=== PATIENT | female | born 1970 | race Caucasian/White ===

== ENCOUNTER 2022-11-07 20:12 | Emergency (ER) | payer MEDICAID, SELFPAY ==
[2022-11-07 20:14] VITALS: BMI 27.0
[2022-11-07 20:16] VITALS: BP 157/100; PULSE 89; RESP 16; TEMP 36.8; O2SAT 97
--- NOTE | 2022-11-07 20:21 | ECG_ITS ---
[facility] Test Date: 2022-11-07 Pat Name: Amber Pruitt Department: Room: Gender: Female Skilled Trades Teacher: : 1970 Requested By: Destini White Order Number: [id number] Chrissy MD: Pradip Edgar M.D. Measurements Intervals [place] Rate: 79 P: 69 [place]: 150 QRS: 66 QRSD: 92 T: 64 QT: 378 QTc: 434 Interpretive Statements SINUS RHYTHM No previous ECG available for comparison Electronically Signed On 11-08-2022 8:11:37 CDT by Pradip Edgar M.D. [email or web address] Medical Transportationhenry county hospital.[employer] [place]/store/Ov/[id number]
--- NOTE | 2022-11-07 20:21 | XRR_ITS ---
PROCEDURE INFORMATION: Exam: XR Chest Exam date and time: 11/07/2022 8:34 PM Age: 52 years old Clinical indication: Chest wall pain; Additional info: Chest pain TECHNIQUE: Imaging protocol: Radiologic exam of the chest. Views: 1 view. COMPARISON: No relevant prior studies available. FINDINGS: Tubes, catheters and devices: EKG monitoring leads overlie the thoracic wall. Lungs: There is no consolidation. Pleural spaces: No pleural effusion or pneumothorax. Heart/Mediastinum: The heart and mediastinum are normal in size. Bones/joints: Unremarkable. XR/XR chest 1V portable [id number] IMPRESSION: No acute findings.
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
[2022-11-07 21:06] VITALS: BP 156/107; PULSE 78; RESP 13; O2SAT 97
[2022-11-07 21:06] LABS: Basophils # 0.1 10^3/uL (0.0-0.1); Basophils % 0.8 %; Eosinophils # 0.2 10^3/uL (0.0-0.8); Eosinophils % 3.4 %; Hemoglobin 12.4 g/dL (11.5-15.3); Lymphocytes # 1.8 10^3/uL (0.8-4.8); Lymphocytes % 30.7 %; Mean Corpuscular HGB Conc 32.6 g/dL (30.0-36.0); Mean Platelet Volume 8.8 fL (7.4-10.4); Monocytes # 0.6 10^3/uL (0.2-0.9); Monocytes % 9.7 %; Neutrophils # 3.26 10^3/uL (1.8-7.7); Neutrophils % 55.2 %; Nucleated Red Blood Cells % 0 %; Platelet Count 247 10^3/cmm (130-400); Red Blood Count 4.13 10^6/uL (4.1-5.3); Red Cell Distribution Width 12.4 % (12.1-15.1); White Blood Count 5.9 10^3/uL (4.0-10.0)
[2022-11-07 21:19] LABS: Troponin(5th) Baseline 10 ng/L (0-10)
[2022-11-07 21:22] LABS: Alanine Aminotransferase 12 U/L (0-33); Albumin Level 4.2 g/dL (3.5-5.2); Alkaline Phosphatase 89 U/L (35-105); Anion Gap 13.7 (5-19); Aspartate Amino Transferase 18 U/L (0-32); Blood Urea Nitrogen 20 mg/dL (6-20); Calcium 8.7 mg/dL (8.5-10.5); Carbon Dioxide 24 mmol/L (22-29); Chloride 103 mmol/L (98-107); Globulin 2.3 g/dL (1.3-4.6); Glomerular Filtration Rate 43.4 mL/min (90-130); Glucose 121 mg/dL (65-115); Lipase 208 U/L (13-60); Osmolality Calculated 288 mOsm/kg (285-295); Potassium 3.7 mmol/L (3.5-5.1); Sodium 137 mmol/L (136-145); Total Bilirubin 0.2 mg/dL (0.15-1.2); Total Protein 6.5 g/dL (6.6-8.7)
[2022-11-07 21:55] VITALS: BP 139/99; PULSE 73; RESP 20; O2SAT 98
[2022-11-07 22:11] VITALS: BP 140/95; PULSE 70; RESP 17; O2SAT 96
[2022-11-07 23:05] LABS: Add Urine Microscopic? YES; Bilirubin Urine Neg (Negative); Blood Urine Neg (Negative); Glucose Urine UA Norm (Normal); Ketones Urine Negative (Negative); Leukocyte Esterase Urine Trace (Negative); Nitrate Urine Negative (Negative); Protein Urine Neg (Negative); Specific Gravity, Urine 1.015 (1.005-1.030); Urine Appearance Hazy (CLEAR); Urine Color Yellow (Yellow); Urobilinogen Urine Norm (Negative); pH Urine 7 (5-7)
[2022-11-07 23:10] LABS: RBC Urine 0-4 /hpf (0-2); WBC Urine 0-4 /hpf (0-5)
[2022-11-07 23:11] LABS: Amorphous Sediment Urine 1+ /hpf; Bacteria Urine 2+ /hpf; Squamous Epithelial Cell Urine 0-4 /hpf (0-5)
--- NOTE | 2022-11-07 23:11 | ECG_ITS ---
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 Measurements Intervals [place] Rate: 56 P: 78 [place]: 164 QRS: 74 QRSD: 92 T: 75 QT: 422 QTc: 410 Interpretive Statements SINUS BRADYCARDIA WITH SINUS ARRHYTHMIA No previous ECG available for comparison Electronically Signed On 11-08-2022 8:16:19 CDT by Pradip Edgar M.D. [email or web address] medical centerCommerce [email or web address] [facility]/store/OM/[id number]
[2022-11-07 23:49] LABS: Troponin 5 2HR Delta -4 ABS# (0-10)
[2022-11-08 00:07] VITALS: BP 142/93; PULSE 61; RESP 12; O2SAT 100
== END 2022-11-08 00:15 | disposition home or self-care (01) ==
PROVIDERS: Emergency Provider Emergency Medicine
DX: R07.89 Other chest pain (principal); G50.0 Trigeminal neuralgia; I10 Essential (primary) hypertension; Z79.899 Other long term (current) drug therapy
CPT/HCPCS: 36415; 71045; 80053; 81001; 83690; 84484; 85025; 93005; 99285

== ENCOUNTER 2022-11-12 19:44 | Emergency (ER) | payer BC, MEDICAID, SELFPAY ==
[2022-11-12 19:59] VITALS: BP 125/69; PULSE 74; RESP 16; TEMP 36.6; O2SAT 96; BMI 26.9
--- NOTE | 2022-11-12 20:15 | XRR_ITS ---
PROCEDURE INFORMATION: Exam: XR Right Wrist Exam date and time: 11/12/2022 8:39 PM Age: 52 years old Clinical indication: Injury or trauma; Fall; Blunt trauma (contusions or hematomas); Wrist; Right; Additional info: Fall, injury, pa in TECHNIQUE: Imaging protocol: Radiologic exam of the right wrist. Views: 3 or more views. COMPARISON: No relevant prior studies available. FINDINGS: Bones/joints: Normal. Soft tissues: Normal. XR/XR wrist RT min 3V* [id number] IMPRESSION: No acute findings.
--- NOTE | 2022-11-12 20:34 | W.ED.EXTPRO ---
HPI - Extremity Problem General: Chief complaint: Extremity Injury, Upper Stated complaint: right wrist injury Time Seen by Provider: 11/12/22 20:07 Source: patient Mode of arrival: ambulatory Limitations: no limitations History of Present Illness: Patient presents emergency department today for evaluation treatment of right wrist pain. Patient states she was taking something heavy out of the oven when her wrist spasmed and dropped. She heard a pop and since then, has developed right wrist swelling and bruising. Patient states for the most part, though her wrist is tender, her most painful position is palm down and pressing on the heel of her hand. Patient does have a history of rupturing connective tissue in her left wrist while batting. Review of Systems General: Reports: 10 or more systems reviewed and unremarkable except in HPI and below Physical Exam Const: COMMON NORMALS: no acute distress, patient oriented x3 and alert HENMT: COMMON NORMALS: normocephalic, atraumatic and hearing grossly normal bilaterally HEAD & SCALP: normocephalic and atraumatic Eye: COMMON NORMALS: Equal, round and reactive pupils present, EOMs intact bilaterally and conjunctivae normal CONJUNCTIVA: Yes conjunctivae normal PUPIL: Yes Equal, round and reactive pupils present Neck/C-Spine: COMMON NORMALS: full ROM and no JVD Lymph: LYMPHATIC: no lymphadenopathy noted Resp: COMMON NORMALS: normal respiratory effort, No retractions and No use of accessory muscles Cardio: COMMON NORMALS: no JVD and regular rate RATE: regular rate Extremity: NARRATIVE EXTREMITY EXAM: Patient does demonstrate some flexion extension of the wrist though she indicates discomfort. Patient also able to flex and extend the thumb at all joints but with some discomfort noted. Patient has a positive Rula test. Patient has a large area of swelling and bruising noted primarily on the distal forearm on the lateral side. This goes from the distal forearm towards the wrist joint. This area is tender to palpation. Neuro: COMMON NORMALS: patient oriented x3 SENSORIUM/ORIENTATION: Yes alert Psych: COMMON NORMALS: mental status grossly normal, Normal thought process present, cooperative and normal affect THOUGHT PROCESS: Normal thought process present Skin: COMMON NORMALS: no rashes or lesions noted and turgor normal GENERAL SKIN EXAM: no rashes or lesions noted and turgor normal Course Vital Signs: Vital signs: Vital Signs Temperature 97.9 F 11/12/22 19:59 Pulse Rate 75 11/12/22 22:21 Respiratory Rate 16 11/12/22 19:59 Blood Pressure 121/62 11/12/22 22:21 Pulse Oximetry 98 11/12/22 22:21 Oxygen Delivery Me thod Room Air 11/12/22 19:59 MDM - Extremity (Nontraumatic) Medical Decision Making X-ray is read negative for any signs of acute bony abnormality. I did get a second opinion on the x-ray from Dr. Ortega. Given the patient's physical examination findings and mechanism of injury, he still recommended bracing the patient having her follow-up with orthopedics-especially given her previous history of connective tissue rupture. Patient was put into a thumb spica. She was given 100 mg ibuprofen to take for pain. Referral to orthopedics initiated on her behalf. We discussed return precautions. Patient verbalized understanding and agreement to the treatment plan. Differential Diagnosis Likely gout; Unlikely cellulitis (Wrist fracture, tendinitis, tendon rupture, muscle strain, muscle tear) Lab Data Radiology Impressions Wrist X-Ray 11/12/22 20:15 IMPRESSION: No acute findings. Discharge Plan Discharge Patient Disposition: Home Clinical Impression: Right wrist effusion, Right wrist pain Condition: Stable Prescriptions: New ibuprofen 800 mg tablet 800 mg PO Q8H PRN (Reason: pain) Qty: 21 0RF No Action cetirizine 5 mg tablet 5 mg PO DAILY PRN fluticasone propionate [Flonase Allergy Relief] 50 mcg/actuation spray,suspension 2 spray intranasal DAILY Rx Instructions: administer into each nostril lisinopril 20 mg tablet 20 mg PO DAILY Qty: 30 0RF gabapentin 300 mg capsule 300 mg PO TID Qty: 90 0RF multivitamin Tablet 1 tab PO QAM Qty: 30 0RF Discharge Orders: Discharge ED (Routine); Ordered 11/12/22 Ordered By: Keira Rosales Discharge Diet: Usual diet Discharge Activity: Limit activity as instructed Patient Instructions: Wrist Injury (ED) Activity Restrictions/Additional Instructions: The radiologist read your x-ray is negative for signs of acute fracture however, given the physical examination findings, your history, and your mechanism of injury, we do have concerns for injury still related to your wrist. After speaking to the emergency room physician, he recommends that we still placed you into a wrist and thumb brace with follow-up through orthopedics for further evaluation of potential soft tissue injury including any rips or tears in either the musculature, tendons, or ligaments in this area. I recommend wearing your brace at all times-other than in the bath. I provided you some 800 mg ibuprofen tablets. You can still use Tylenol in addition to this ibuprofen if needed. Our case management workers who arranged follow-up appointments are in the office from Tuesday through Tuesday. You should expect to be notified at the beginning of the week regarding your follow-up appointment. If for any reason you have any acute worsening in condition we do recommend being seen and reevaluated. Coding Level of Care Code ED Instructional Services Specialist for Raphael Moreno
[2022-11-12] MEDS: ibuprofen 800 mg tablet PO (21:16)
[2022-11-12] MEDS: HYDROcodone-acetaminophen 5-325 mg Tablet 1 TAB PO (21:16)
[2022-11-12 22:21] VITALS: BP 121/62; PULSE 75; O2SAT 98
--- NOTE | 2022-11-15 08:19 | DCPLANNER ---
Addendum entered by Belinda Koch 11/22/22 15:29: Patient had a follow up appointment scheduled for 11.22.22 at ortho - patient did attend appointment. Addendum entered by Belinda Koch 11/16/22 10:54: manager infusion received the following message from the front office staff at ortho regarding follow up appointment: Attempted to contact patient - I was unable to get ahold of the place she currently resides at. I left a v/m and will be mailing a letter so she knows to call back and schedule. When she does call back to schedule, we will get her in next week some time with Dr. Tejeda! Original Note: manager infusion had message to schedule a follow up appointment for patient with ortho. manager infusion sent patients information to the front office staff at ortho. Patients information will be printed and reviewed. Clinic will call patient with appointment information.
--- NOTE | 2022-11-16 10:55 | DCPLANNER ---
tire care manager called patient due to no primary care physician - no contact at this time.
== END 2022-11-12 22:24 | disposition home or self-care (01) ==
PROVIDERS: Emergency Provider Physician Assistant
DX: M25.431 Effusion, right wrist (principal)
CPT/HCPCS: 73110; 99283

== ENCOUNTER → 2022-11-15 10:07 | Outpatient (BNVA) | payer MEDICAID, SELFPAY | PROVIDERS: PCP Family Medicine; Visit Provider Family Medicine | DX: N17.9 Acute kidney failure, unspecified (principal) | CPT/HCPCS: 80053; 80061; 83690; 84439; 84443 ==

== ENCOUNTER → 2022-11-22 09:07 | Outpatient (BNVA) | payer MEDICAID, BC, SELFPAY | PROVIDERS: PCP Family Medicine; Referring Provider Physician Assistant; Visit Provider Specialist | DX: S69.91XA Unspecified injury of right wrist, hand and finger(s), initial encounter (principal); X58.XXXA Exposure to other specified factors, initial encounter | CPT/HCPCS: 73110 ==

== ENCOUNTER 2022-11-22 15:15 | Outpatient (CLI) | payer MEDICAID, BC, SELFPAY | END 2022-11-22 15:16 | disposition home or self-care (01) | LOC: SPT 15:16 | PROVIDERS: PCP Family Medicine; Visit Provider Specialist | DX: Z46.89 Encounter for fitting and adjustment of other specified devices (principal); S69.91XD Unspecified injury of right wrist, hand and finger(s), subsequent encounter; X58.XXXD Exposure to other specified factors, subsequent encounter; M25.531 Pain in right wrist | CPT/HCPCS: 97760; 99214; L3807 ==

== ENCOUNTER 2022-11-29 17:33 | Emergency (ER) | payer MEDICAID, BC, SELFPAY ==
[2022-11-29 17:42] VITALS: BP 129/85; PULSE 87; RESP 16; TEMP 36.7; O2SAT 96; BMI 27.0
--- NOTE | 2022-11-29 17:47 | PC.NURSE ---
PATIENT IS STANDING AND WALKING IN WAITING ROOM- ASKING WHERE SHE CAN GO TO VAPE- PATIENT IS GOING TO THE PARKING LOT ACROSS THE ROAD
--- NOTE | 2022-11-29 19:10 | ED_ITS ---
HPI - Seizure General: Chief Complaint: Seizure Stated Complaint: poss seizure Time Seen by Provider: 11/29/22 18:53 Source: patient Mode of arrival: ambulatory Limitations: no limitations History of Present Illness: HPI Narrative: 52-year-old female states she has a history of neurogenic seizures she states she used to take Valium for these been out states that today roughly an hour ago started having episodes where her body was shaking she had no loss of conscious no postictal period states she feels back at her baseline she has no headache no fever denies any worsening improving factors. 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 History of eustachian tube dysfunction History of kidney stones Pseudomeningocele Trigeminal neuralgia Surgical History H/O cervical discectomy History of cholecystectomy History of partial hysterectomy History of surgery on left wrist ganglion cyst removed and torn ligaments repaired History of tonsillectomy and adenoidectomy Family History Grandfather Cancer Paternal-brain Other CAD (coronary artery disease) Diabetes Hyperlipidemia Hypertension Lung disease Psychiatric illness Stroke Denies family history of Clotting disorder Dementia Chronic kidney disease (CKD) Anesthesia complication Bleeding disorder Social History Smoking and tobacco status: current every day smoker e-cigarettes E-Cigarette Details: vaporizer device E-cig/vape details: delta 8 Alcohol intake: never Substance/Drug Use: never Lives independently: Yes Marital status: Number of children: 3 Current occupational status: unemployed Kisha/Pentecostal: None Special kisha needs: No Agree to transfusion: Yes Physical Exam Const: COMMON NORMALS: no acute distress, patient oriented x3 and healthy appearing HENMT: COMMON NORMALS: normocephalic and atraumatic HEAD & SCALP: normocephalic and atraumatic Eye: COMMON NORMALS: Equal, round and reactive pupils present and EOMs intact bilaterally PUPIL: Yes Equal, round and reactive pupils present Neck/C-Spine: COMMON NORMALS: full ROM and supple Chest: COMMONS NORMALS: normal inspection of the chest and normal palpation of entire chest wall Resp: COMMON NORMALS: normal respiratory effort, No retractions, No use of accessory muscles and clear to auscultation bilaterally AUSCULTATION: clear to auscultation bilaterally Cardio: COMMON NORMALS: regular rate, regular rhythm and No murmurs present (Cardio) RATE: regular rate RHYTHM: regular rhythm GI: INSPECTION: Yes normal to inspection Extremity: COMMON NORMALS: normal to inspection and full ROM Neuro: COMMON NORMALS: patient oriented x3, moves all extremities and no focal motor deficits Psych: COMMON NORMALS: mental status grossly normal, Normal thought process present and cooperative THOUGHT PROCESS: Normal thought process present Skin: COMMON NORMALS: no rashes or lesions noted and no wounds GENERAL SKIN EXAM: no rashes or lesions noted Course Vital Signs: Vital signs: Vital Signs Temperature 98.1 F 11/29/22 20:28 Pulse Rate 78 11/29/22 20:28 Respiratory Rate 16 11/29/22 20:28 Blood Pressure 158/111 11/29/22 20:28 Pulse Oximetry 98 11/29/22 20:28 Oxygen Delivery Me thod Room Air 11/29/22 17:42 MDM - Seizure MDM Narrative Medical decision making narrative: Patient presents here with a possible seizure she has been well-appearing here blood work here is normal she feels improved she is stable for discharge she is to follow-up with PCP and return if worsening. Lab Data 11/29/22 19:45 11/29/22 18:37 Labs: Laboratory Results WBC 5.0 10^3/uL (4.0-10.0) 11/29/22 19:45 RBC 4.50 10^6/uL (4.1-5.3) 11/29/22 19:45 Hgb 13.8 g/dL (11.5-15.3) 11/29/22 19:45 Hct 42.7 % (37.0-47.0) 11/29/22 19:45 MCV 94.9 fl (81-99) 11/29/22 19:45 MCH 30.7 pg (28.0-34.0) 11/29/22 19:45 MCHC 32.3 g/dL (30.0-36.0) 11/29/22 19:45 RDW 12.2 % (12.1-15.1) 11/29/22 19:45 Plt Count 208 10^3/cmm (130-400) 11/29/22 19:45 MPV 9.3 fL (7.4-10.4) 11/29/22 19:45 Neut % (Auto) 50.6 % 11/29/22 19:45 Lymph % (Auto) 33.5 % 11/29/22 19:45 [place] % (Auto) 13.3 % 11/29/22 19:45 Eos % (Auto) 1.4 % 11/29/22 19:45 Baso % (Auto) 1.2 % 11/29/22 19:45 Neut # (Auto) 2.51 10^3/uL (1.8-7.7) 11/29/22 19:45 Lymph # (Auto) 1.7 10^3/uL (0.8-4.8) 11/29/22 19:45 [place] # (Auto) 0.7 10^3/uL (0.2-0.9) 11/29/22 19:45 Eos # (Auto) 0.1 10^3/uL (0.0-0.8) 11/29/22 19:45 Baso # (Auto) 0.1 10^3/uL (0.0-0.1) 11/29/22 19:45 Nucleated RBC % (auto) 0 % 11/29/22 19:45 Nucleated RBCs # 0.0 /100WBC 11/29/22 19:45 Sodium 142 mmol/L (136-145) 11/29/22 18:37 Potassium 4.1 mmol/L (3.5-5.1) 11/29/22 18:37 Chloride 105 mmol/L (98-107) 11/29/22 18:37 Carbon Dioxide 21 mmol/L (22-29) L 11/29/22 18:37 Anion Gap 20.1 (5-19) H 11/29/22 18:37 BUN 13 mg/dL (6-20) 11/29/22 18:37 Creatinine 0.8 mg/dL (0.5-0.9) 11/29/22 18:37 GFR Calculation 75.9 mL/min (90-130) L 11/29/22 18:37 Glucose 94 mg/dL (65-115) 11/29/22 18:37 Calculated Osmolality 294 mOsm/kg (285-295) 11/29/22 18:37 Calcium 9.9 mg/dL (8.5-10.5) 11/29/22 18:37 Total Bilirubin 0.3 mg/dL (0.15-1.2) 11/29/22 18:37 AST 17 U/L (0-32) 11/29/22 18:37 ALT 11 U/L (0-33) 11/29/22 18:37 Alkaline Phosphatase 79 U/L (35-105) 11/29/22 18:37 Total Protein 7.3 g/dL (6.6-8.7) 11/29/22 18:37 Albumin 4.2 g/dL (3.5-5.2) 11/29/22 18:37 Globulin 3.1 g/dL (1.3-4.6) 11/29/22 18:37 Prolactin 9.26 ng/mL (4.8-23.3) 11/29/22 18:37 Discharge Plan Discharge Patient Disposition: Home Clinical Impression: Generalized seizure Condition: Stable Prescriptions: No Action fluoxetine 20 mg capsule 20 mg PO DAILY Qty: 30 0RF multivitamin Tablet 1 tab PO QAM Qty: 30 0RF gabapentin 300 mg capsule 600 mg PO BID Qty: 90 0RF lisinopril 20 mg tablet 20 mg PO DAILY Qty: 90 1RF (DME) Fast Form Splint See Rx Instructions .Route .MEDSUPPLY Qty: 1 0RF Rx Instructions: As directed ibuprofen 800 mg tablet 800 mg PO Q8H PRN (Reason: pain) Qty: 21 0RF Discharge Orders: Discharge ED (Routine); Ordered 11/29/22 Ordered By: Jameson Rabago Referrals: Cristofer Morales MD [Primary Care Provider] - Discharge Diet: Advance as tolerated Discharge Activity: Resume usual activity Patient Instructions: Recurrent Seizures in Adults (ED) Coding Level of Care Code ED Info Analyst for Raphael Moreno
[2022-11-29] MEDS: diazePAM 5 mg Tablet PO (19:17)
[2022-11-29 19:23] VITALS: BP 158/111; PULSE 78; RESP 16; O2SAT 98
[2022-11-29 19:36] LABS: Albumin Level 4.2 g/dL (3.5-5.2); Alkaline Phosphatase 79 U/L (35-105); Blood Urea Nitrogen 13 mg/dL (6-20); Calcium 9.9 mg/dL (8.5-10.5); Carbon Dioxide 21 mmol/L (22-29); Globulin 3.1 g/dL (1.3-4.6); Glomerular Filtration Rate 75.9 mL/min (90-130); Glucose 94 mg/dL (65-115); Prolactin 9.26 ng/mL (4.8-23.3); Total Bilirubin 0.3 mg/dL (0.15-1.2); Total Protein 7.3 g/dL (6.6-8.7)
[2022-11-29 19:48] LABS: Alanine Aminotransferase 11 U/L (0-33); Anion Gap 20.1 (5-19); Aspartate Amino Transferase 17 U/L (0-32); Potassium 4.1 mmol/L (3.5-5.1); Sodium 142 mmol/L (136-145)
[2022-11-29 19:49] LABS: Chloride 105 mmol/L (98-107); Osmolality Calculated 294 mOsm/kg (285-295)
[2022-11-29 19:54] LABS: Basophils # 0.1 10^3/uL (0.0-0.1); Basophils % 1.2 %; Eosinophils # 0.1 10^3/uL (0.0-0.8); Eosinophils % 1.4 %; Hematocrit 42.7 % (37.0-47.0); Hemoglobin 13.8 g/dL (11.5-15.3); Lymphocytes # 1.7 10^3/uL (0.8-4.8); Lymphocytes % 33.5 %; Mean Corpuscular HGB Conc 32.3 g/dL (30.0-36.0); Mean Corpuscular Hemoglobin 30.7 pg (28.0-34.0); Mean Corpuscular Volume 94.9 fl (81-99); Mean Platelet Volume 9.3 fL (7.4-10.4); Monocytes # 0.7 10^3/uL (0.2-0.9); Monocytes % 13.3 %; Neutrophils # 2.51 10^3/uL (1.8-7.7); Neutrophils % 50.6 %; Nucleated Red Blood Cells % 0 %; Platelet Count 208 10^3/cmm (130-400); Red Cell Distribution Width 12.2 % (12.1-15.1)
[2022-11-29 20:28] VITALS: BP 158/111; PULSE 78; RESP 16; TEMP 36.7; O2SAT 98
== END 2022-11-29 20:28 | disposition home or self-care (01) ==
PROVIDERS: Emergency Medicine; Emergency Provider Emergency Medicine; PCP Family Medicine
DX: G40.89 Other seizures (principal); F17.290 Nicotine dependence, other tobacco product, uncomplicated
CPT/HCPCS: 36415; 80053; 84146; 85025; 99283

== ENCOUNTER 2022-12-03 12:56 | Emergency (ER) | payer BC, MEDICAID, SELFPAY ==
[2022-12-03 13:59] LABS: Basophils % 0.3 %; Eosinophils % 0.3 %; Hematocrit 41.3 % (37.0-47.0); Hemoglobin 13.7 g/dL (11.5-15.3); Lymphocytes # 1.2 10^3/uL (0.8-4.8); Lymphocytes % 16.6 %; Mean Corpuscular HGB Conc 33.2 g/dL (30.0-36.0); Mean Corpuscular Hemoglobin 29.4 pg (28.0-34.0); Mean Corpuscular Volume 88.6 fl (81-99); Mean Platelet Volume 8.8 fL (7.4-10.4); Monocytes # 0.3 10^3/uL (0.2-0.9); Monocytes % 4.2 %; Neutrophils # 5.44 10^3/uL (1.8-7.7); Neutrophils % 78.5 %; Nucleated Red Blood Cells % 0 %; Platelet Count 252 10^3/cmm (130-400); Red Blood Count 4.66 10^6/uL (4.1-5.3); Red Cell Distribution Width 12.2 % (12.1-15.1); White Blood Count 6.9 10^3/uL (4.0-10.0)
[2022-12-03 14:02] LABS: Protein Urine Neg (Negative); Urine Appearance Clear (CLEAR); Urine Color Yellow (Yellow); pH Urine 5 (5-7)
[2022-12-03 14:03] LABS: Add Urine Culture? No; Add Urine Microscopic? YES; Bacteria Urine TRACE /hpf; Bilirubin Urine Neg (Negative); Blood Urine Neg (Negative); Glucose Urine UA Norm (Normal); Ketones Urine 1+ (Negative); Leukocyte Esterase Urine Trace (Negative); Mucus Urine 4+ /hpf; Nitrate Urine Negative (Negative); RBC Urine 0-4 /hpf (0-2); Squamous Epithelial Cell Urine 0-4 /hpf (0-5); Urobilinogen Urine 1 mg/dL (Negative); WBC Urine 0-4 /hpf (0-5)
[2022-12-03 14:13] LABS: Alanine Aminotransferase 11 U/L (0-33); Albumin Level 4.6 g/dL (3.5-5.2); Alkaline Phosphatase 77 U/L (35-105); Anion Gap 14.4 (5-19); Aspartate Amino Transferase 18 U/L (0-32); Blood Urea Nitrogen 10 mg/dL (6-20); Calcium 9.6 mg/dL (8.5-10.5); Carbon Dioxide 26 mmol/L (22-29); Chloride 105 mmol/L (98-107); Globulin 2.7 g/dL (1.3-4.6); Glomerular Filtration Rate 75.9 mL/min (90-130); Glucose 106 mg/dL (65-115); Lipase 49 U/L (13-60); Osmolality Calculated 293 mOsm/kg (285-295); Potassium 3.4 mmol/L (3.5-5.1); Sodium 142 mmol/L (136-145); Total Bilirubin 0.4 mg/dL (0.15-1.2); Total Protein 7.3 g/dL (6.6-8.7)
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
--- NOTE | 2022-12-03 16:05 | PC.NURSE ---
Assumed care of patient at 1600.
[2022-12-03 16:33] VITALS: BP 156/99; PULSE 74; O2SAT 99
== END 2022-12-03 16:41 | disposition home or self-care (01) ==
PROVIDERS: Emergency Provider Nurse Practitioner Family; PCP Family Medicine
DX: R11.2 Nausea with vomiting, unspecified (principal); F17.290 Nicotine dependence, other tobacco product, uncomplicated
CPT/HCPCS: 36415; 80053; 81001; 83690; 85025; 99283

== ENCOUNTER 2023-02-01 10:40 | Outpatient (CLI) | payer BC, MEDICAID, SELFPAY ==
--- NOTE | 2023-02-01 11:45 | MR_ITS ---
WS: [id number] MRI RIGHT WRIST WITHOUT CONTRAST. COMPARISON: None Multiplanar, multisequence imaging is performed without contrast. No marrow edema or acute fracture is identified. No ulnar positive variance. There is a moderate amount of fluid in the distal radial ulnar joint that is contiguous along the pro ximal surface of the distal ulna. There is increased T2 signal in the central to distal TFCC. No widening of the scapholunate interval. Carpal rows are normal. There is a small amount of increase d signal within the scapholunate ligament. This is probably degenerative. No definite full-thickness tear and no fluid extending into the proximal carpal row. IMPRESSION: 1. Moderate amount of fluid in the distal radial ulnar joint. 2. Minimal focal increased signal through the central to distal TFCC consistent with a tear. 3. No fractures or marrow edema.
== END 2023-02-01 10:41 | disposition home or self-care (01) ==
PROVIDERS: PCP Family Medicine; Visit Provider Specialist
DX: M25.531 Pain in right wrist (principal); G89.29 Other chronic pain
CPT/HCPCS: 73221

== ENCOUNTER → 2023-04-05 11:01 | Outpatient (BNVA) | payer BC, MEDICAID, SELFPAY | PROVIDERS: PCP Family Medicine; Visit Provider Nurse Practitioner | DX: S63.591A Other specified sprain of right wrist, initial encounter (principal); X58.XXXA Exposure to other specified factors, initial encounter; R20.2 Paresthesia of skin; M62.838 Other muscle spasm; Z65.4 Victim of crime and terrorism | CPT/HCPCS: 73030 ==

== ENCOUNTER 2023-05-10 12:17 | Emergency (ER) | payer BC, MEDICAID, SELFPAY ==
[2023-05-10 12:56] VITALS: BP 146/99; PULSE 88; RESP 14; TEMP 36.8; O2SAT 98; BMI 26.7
[2023-05-10 13:24] VITALS: BP 144/91; PULSE 87; RESP 17; O2SAT 97
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
[2023-05-10 14:14] VITALS: BP 142/95; PULSE 86; RESP 15; O2SAT 94
--- NOTE | 2023-05-12 10:02 | DCPLANNER ---
Referral for ENT was sent to [facility] (Dr. Guevara office) on 05/12/23 at 10:02 am.
== END 2023-05-10 14:15 | disposition home or self-care (01) ==
PROVIDERS: Emergency Provider Physician Assistant; PCP Family Medicine
DX: J01.00 Acute maxillary sinusitis, unspecified (principal); R07.0 Pain in throat; Z72.0 Tobacco use
CPT/HCPCS: 99283

== ENCOUNTER → 2023-06-06 10:16 | Outpatient (BNVA) | payer BC, MEDICAID, SELFPAY | PROVIDERS: PCP Family Medicine; Visit Provider Family Medicine | DX: R56.9 Unspecified convulsions (principal) | CPT/HCPCS: 81000; 85025 ==

== ENCOUNTER 2023-06-08 13:29 | Outpatient (CLI) | payer BC, MEDICAID, SELFPAY ==
--- NOTE | 2023-06-08 14:00 | CT_ITS ---
WS: [id number] CT HEAD TECHNIQUE: Noncontrast CT of the head obtained from the skullbase to the vertex. CLINICAL INFORMATION: seizure like activity, CVA r/o COMPARISON: None. DLP: 1059.[address] scans at [facility] use at least one of these dose optimization techniques: automated e xposure control; mA and/or kV adjustment per patient size (includes targeted exams where dose is matc hed to clinical indication); or iterative reconstruction. FINDINGS: No evidence of intracranial hemorrhage or mass effect. Ventricular system and basal cisterns are rey nt. No extra-axial fluid collections. No evidence of mass or mass effect. Incidental perivascular spa ce RIGHT basal ganglia. Partially evaluated Chiari I malformation. Normal fourth ventricle. No hydrocephalus. Paranasal sinus es and mastoid air cells are well aerated. IMPRESSION: 1. No evidence of intracranial hemorrhage or mass effect. 2. Partially evaluated Chiari I malformation. Normal fourth ventricle. This to be further evaluated with MRI of the head and cervical spine. Mild crowding of the foramen magnum. 3. Partially visualized postoperative changes of Chiari decompression 4. No acute intracranial findings.
== END 2023-06-08 13:30 | disposition home or self-care (01) ==
LOC: RAD 13:29
PROVIDERS: PCP Family Medicine; Visit Provider Family Medicine
DX: R56.9 Unspecified convulsions (principal); G93.5 Compression of brain
CPT/HCPCS: 70450; 80053; 81000; 84439; 84443; 85025; 87086

== ENCOUNTER 2023-06-16 13:21 | Emergency (ER) | payer BC, MEDICAID, SELFPAY ==
[2023-06-16 13:23] VITALS: BP 132/94; PULSE 80; RESP 16; TEMP 36.7; O2SAT 95; BMI 27.8
--- NOTE | 2023-06-16 13:59 | ED_ITS ---
HPI - Abdominal Pain 2 General: Chief Complaint: Abdominal Pain Stated Complaint: vomiting Time Seen by Provider: 06/16/23 13:23 Source: patient Mode of arrival: ambulatory History of Present Illness: 52-year-old female presents emergency ro om stating she has neurogenic convulsions. She describes it as feeling like her head is and her whole body is vibrating she has had them in the past. She is being seen by neurology clinic locally for seizures. She is not on any antiseizure medication she is awake through all of these episodes. She states he feels it from her head down into her abdomen. The episode started last week and been intermittent since then she was previously on Valium when she moved to this area and does not want have Valium anymore and that is when the episodes started. I asked the patient if she had ever been told she had functional seizures versus conversion disorder she was unsure what that was. She denies chest pain abdominal pain or shortness of breath no muscle pain or weakness does not sound from her description she had any postictal episodes that she is awake during these episodes MD elicited complaint: abdominal pain Onset (ago): week(s) Pain Consistency: intermittent Severity: mild Radiation: none Exacerbating factors: nothing Relieving factors: nothing Associated Symptoms: Reports anorexia, bloating, change in stool character, GI cramping and dyspepsia; Denies chills, dysuria and fever(s) Review of Systems 2 Const: Denies: fever(s), chills, fatigue or malaise Card: Denies: chest pain Resp: Denies: dyspnea GI: Reports: bloating, GI cramping and change in stool character; Denies: abdominal pain : Denies: dysuria, urinary frequency or urinary urgency Musc: Denies: neck pain or back pain Skin/Breast: Denies: rash PFSH ED 2 PFSH: Medical History Trapezius muscle spasm Positive Tinel's sign Chronic right shoulder pain 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 Pseudomeningocele History of eustachian tube dysfunction History of kidney stones Trigeminal neuralgia Surgical History History of surgery on left wrist ganglion cyst removed and torn ligaments repaired History of cholecystectomy History of tonsillectomy and adenoidectomy H/O cervical discectomy History of partial hysterectomy Family History Grandfather Cancer Paternal-brain Other CAD (coronary artery disease) Diabetes Hyperlipidemia Hypertension Lung disease Psychiatric illness Stroke Denies family history of Clotting disorder Dementia Chronic kidney disease (CKD) Anesthesia complication Bleeding disorder Social History Smoking and tobacco/nicotine status: current every day tobacco/nicotine user e- cigarettes E-Cigarette Details: vaporizer device E-cig/vape details: delta 8 Alcohol intake: never Substance/Drug Use: never Lives independently: Yes Marital status: Number of children: 3 Current occupational status: unemployed Kisha/Shinto: None Special kisha needs: No Agree to transfusion: Yes Physical Exam 2 Const: COMMON NORMALS: no acute distress GENERAL APPEARANCE: cooperative and comfortable ORIENTATION/CONSCIOUSNESS: Yes awake, Yes oriented to person, Yes oriented to place and Yes oriented to time HENMT: COMMON NORMALS: normocephalic, atraumatic and hearing grossly normal bilaterally HEAD & SCALP: normocephalic and atraumatic Resp: COMMON NORMALS: normal respiratory effort, No retractions, No use of accessory muscles and clear to auscultation bilaterally AUSCULTATION: clear to auscultation bilaterally Cardio: COMMON NORMALS: regular rate, regular rhythm and No murmurs present (Cardio) RATE: regular rate RHYTHM: regular rhythm GI: COMMON NORMALS: Soft to palpation and No hepatosplenomegaly present A USCULTATION: Yes normoactive bowel sounds PALPATION: Yes Soft to palpation, No Tenderness to palpation present (GI), No Guarding due to palpation present (GI) and Yes No hepatosplenomegaly present Extremity: COMMON NORMALS: normal to inspection, capillary refill normal, no clubbing, cyanosis or edema, no calf tenderness and no pedal edema Neuro: SENSORIUM/ORIENTATION: Yes oriented to person, Yes oriented to place and Yes oriented to time Skin: COMMON NORMALS: no rashes or lesions noted GENERAL SKIN EXAM: no rashes or lesions noted Course 2 Vital Signs: Vital signs: Vital Signs Temperature 98.1 F 06/16/23 15:47 Pulse Rate 82 06/16/23 15:47 Respiratory Rate 16 06/16/23 15:47 Blood Pressure 132/94 06/16/23 15:47 Pulse Oximetry 95 06/16/23 15:47 Oxygen Delivery Me thod Room Air 06/16/23 13:23 MDM - Abdominal Pain Medical Decision Making Exam is unremarkable neurologically she is intact there is no evidence of focal neurologic deficit. Lactate and CPK are normal for describes do not believe this sounds like an actual generalized seizure suspect is more functional disorder. She did have an incidental finding of cystitis we will treat her for this with oral antibiotics have her follow-up with neurology as planned Medical Records I reviewed the patient's medical records. Lab Data I reviewed the patient's lab results. 06/16/23 14:02 06/16/23 14:02 Labs/Radiology: Laboratory Results WBC 7.44 10^3/uL (3.29-11.43) 06/16/23 14:02 RBC 4.99 10^6/uL (3.85-5.65) 06/16/23 14:02 Hgb 15.30 g/dL (11.27-16.99) 06/16/23 14:02 Hct 44.7 % (36-47) 06/16/23 14:02 MCV 89.6 fl (85-98) 06/16/23 14:02 MCH 30.7 pg (27-33) 06/16/23 14:02 MCHC 34.2 g/dL (30-55) 06/16/23 14:02 RDW 12.9 % (12.1-15.1) 06/16/23 14:02 Plt Count 294 10^3/cmm (157-399) 06/16/23 14:02 MPV 8.7 fL (7.4-10.4) 06/16/23 14:02 Neut % (Auto) 78.9 % 06/16/23 14:02 Lymph % (Auto) 16.0 % 06/16/23 14:02 [place] % (Auto) 4.4 % 06/16/23 14:02 Eos % (Auto) 0.0 % 06/16/23 14:02 Baso % (Auto) 0.3 % 06/16/23 14:02 Neut # (Auto) 5.87 10^3/uL (1.8-7.7) 06/16/23 14:02 Lymph # (Auto) 1.2 10^3/uL (0.8-4.8) 06/16/23 14:02 [place] # (Auto) 0.3 10^3/uL (0.2-0.9) 06/16/23 14:02 Eos # (Auto) 0.0 10^3/uL (0.0-0.8) 06/16/23 14:02 Baso # (Auto) 0.0 10^3/uL (0.0-0.1) 06/16/23 14:02 Nucleated RBC % (auto) 0 % 06/16/23 14:02 Nucleated RBCs # 0.0 /100WBC 06/16/23 14:02 Sodium 140 mmol/L (136-145) 06/16/23 14:02 Potassium 3.7 mmol/L (3.5-5.1) 06/16/23 14:02 Chloride 103 mmol/L (98-107) 06/16/23 14:02 Carbon Dioxide 26 mmol/L (22-29) 06/16/23 14:02 Anion Gap 14.7 (5-19) 06/16/23 14:02 BUN 15 mg/dL (6-20) 06/16/23 14:02 Creatinine 0.7 mg/dL (0.5-0.9) 06/16/23 14:02 GFR Calculation 88.6 mL/min (90-130) L 06/16/23 14:02 Glucose 95 mg/dL (65-115) 06/16/23 14:02 Calculated Osmolality 291 mOsm/kg (285-295) 06/16/23 14:02 Lactic Acid 1.2 mmol/L (0.5-2.2) 06/16/23 14:02 Calcium 9.5 mg/dL (8.5-10.5) 06/16/23 14:02 Total Bilirubin 0.7 mg/dL (0.15-1.2) 06/16/23 14:02 AST 21 U/L (0-32) 06/16/23 14:02 ALT 22 U/L (0-33) 06/16/23 14:02 Alkaline Phosphatase 85 U/L (35-105) 06/16/23 14:02 Creatine Kinase 56 U/L (26-192) 06/16/23 14:02 Total Protein 7.4 g/dL (6.6-8.7) 06/16/23 14:02 Albumin 4.4 g/dL (3.5-5.2) 06/16/23 14:02 Globulin 3.0 g/dL (1.3-4.6) 06/16/23 14:02 Lipase 50 U/L (13-60) 06/16/23 14:02 Urine Color Yellow (Yellow) 06/16/23 14:04 Urine Appearance Sl hazy (CLEAR) A 06/16/23 14:04 Urine pH 6 (5-7) 06/16/23 14:04 Ur Specific [place] 1.020 (1.005-1.030) 06/16/23 14:04 Urine Protein Neg (Negative) 06/16/23 14:04 Urine Glucose (UA) Norm (Normal) 06/16/23 14:04 Urine Ketones 2+ (Negative) H 06/16/23 14:04 Urine Blood Neg (Negative) 06/16/23 14:04 Urine Nitrate Negative (Negative) 06/16/23 14:04 Urine Bilirubin Neg (Negative) 06/16/23 14:04 Urine Urobilinogen 1 mg/dL (Negative) H 06/16/23 14:04 Ur Leukocyte Esterase Trace (Negative) H 06/16/23 14:04 Urine RBC 0-4 /hpf (0-2) H 06/16/23 14:04 Urine WBC 10-15 /hpf (0-5) H 06/16/23 14:04 Ur Squamous Epith Cells 5-10 /hpf (0-5) H 06/16/23 14:04 Amorphous Sediment Not Reportable 06/16/23 14:04 Urine Bacteria Trace /hpf (NONE) 06/16/23 14:04 Urine Mucus 2+ /hpf 06/16/23 14:04 All radiology interpretation(s) finalized by discharge Discharge Plan Discharge Patient Disposition: Home Clinical Impression: Cystitis, Seizure-like activity Condition: Stable Prescriptions: New Macrobid 100 mg capsule 100 mg PO BID 7 Days Qty: 14 0RF Rx Instructions: must administer with a meal/food No Action cetirizine [Zyrtec] 10 mg tablet 10 mg PO DAILY Qty: 30 0RF albuterol sulfate [Ventolin HFA] 90 mcg/actuation HFA aerosol inhaler 2 puff inhalation QID Qty: 6.7 0RF fluticasone propionate [Flonase Allergy Relief] 50 mcg/actuation spray,suspension 2 spray intranasal DAILY Qty: 16 0RF Rx Instructions: administer into each nostril gabapentin 300 mg capsule 600 mg PO BID Qty: 240 1RF (DME) Thumb Spica Splint See Rx Instructions .Route .MEDSUPPLY Qty: 1 0RF Rx Instructions: As directed celecoxib [Celebrex] 200 mg capsule 200 mg PO BID Qty: 60 2RF lisinopril 20 mg tablet 20 mg PO DAILY Qty: 90 1RF omeprazole 20 mg capsule,delayed release(DR/EC) 20 mg PO DAILY Discharge Orders: Discharge ED (Routine); Ordered 06/16/23 Ordered By: Kris Pate Referrals: Cristofer Morales MD [Primary Care Provider] - Discharge Diet: Usual diet Discharge Activity: Increase activity as tolerated Patient Instructions: Opioid Safety, Pain Management Activity Restrictions/Additional Instructions: Thank you for choosing [facility] for your healthcare needs today. Please realize this is an emergency room and that we are providing you with a medical screening exam and this may not be complete and all inclusive of all the testing and or work up that you may need to determine your ailment or severity of your illness. It is very important that you follow up as instructed or that you return to the Emergency Department should you have concerns or if your condition changes or worsens in any way. You are seen today for concern of seizure. Laboratory tests are unremarkable and neurologic dam is normal at this time. Recommend you follow-up with neurology as scheduled for evaluation regarding seizures. You were found to have a bladder infection as well given a prescription for antibiotic for your bladder. Coding Level of Care Code ED Senior Network Engineer for Raphael Moreno
[2023-06-16 14:44] LABS: Basophils % 0.3 %; Hematocrit 44.7 % (36-47); Lymphocytes # 1.2 10^3/uL (0.8-4.8); Mean Corpuscular HGB Conc 34.2 g/dL (30-55); Mean Corpuscular Hemoglobin 30.7 pg (27-33); Mean Corpuscular Volume 89.6 fl (85-98); Mean Platelet Volume 8.7 fL (7.4-10.4); Monocytes # 0.3 10^3/uL (0.2-0.9); Monocytes % 4.4 %; Neutrophils # 5.87 10^3/uL (1.8-7.7); Neutrophils % 78.9 %; Nucleated Red Blood Cells % 0 %; Platelet Count 294 10^3/cmm (157-399); Red Blood Count 4.99 10^6/uL (3.85-5.65); Red Cell Distribution Width 12.9 % (12.1-15.1); White Blood Count 7.44 10^3/uL (3.29-11.43)
[2023-06-16 14:51] LABS: Glucose Urine UA Norm (Normal); Protein Urine Neg (Negative); Urine Appearance SL Hazy (CLEAR); Urine Color Yellow (Yellow); pH Urine 6 (5-7)
[2023-06-16 14:52] LABS: Add Urine Microscopic? YES; Bilirubin Urine Neg (Negative); Blood Urine Neg (Negative); Ketones Urine 2+ (Negative); Leukocyte Esterase Urine Trace (Negative); Nitrate Urine Negative (Negative); Urobilinogen Urine 1 mg/dL (Negative)
[2023-06-16 15:14] LABS: Alanine Aminotransferase 22 U/L (0-33); Albumin Level 4.4 g/dL (3.5-5.2); Alkaline Phosphatase 85 U/L (35-105); Anion Gap 14.7 (5-19); Aspartate Amino Transferase 21 U/L (0-32); Blood Urea Nitrogen 15 mg/dL (6-20); Calcium 9.5 mg/dL (8.5-10.5); Carbon Dioxide 26 mmol/L (22-29); Chloride 103 mmol/L (98-107); Creatine Phosphokinase 56 U/L (26-192); Glomerular Filtration Rate 88.6 mL/min (90-130); Glucose 95 mg/dL (65-115); Lipase 50 U/L (13-60); Osmolality Calculated 291 mOsm/kg (285-295); Potassium 3.7 mmol/L (3.5-5.1); Sodium 140 mmol/L (136-145); Total Bilirubin 0.7 mg/dL (0.15-1.2); Total Protein 7.4 g/dL (6.6-8.7)
[2023-06-16 15:16] LABS: Bacteria Urine TRACE /hpf; Mucus Urine 2+ /hpf; RBC Urine 0-4 /hpf (0-2)
[2023-06-16 15:17] LABS: Lactic Sepsis W/Reflex 1.2 mmol/L (0.5-2.2)
[2023-06-16 15:17] LABS: Add Urine Culture? No
[2023-06-16 15:47] VITALS: BP 132/94; PULSE 82; RESP 16; TEMP 36.7; O2SAT 95
== END 2023-06-16 15:48 | disposition home or self-care (01) ==
PROVIDERS: Emergency Provider Family Medicine; PCP Family Medicine
DX: N30.90 Cystitis, unspecified without hematuria (principal); R56.9 Unspecified convulsions; F17.290 Nicotine dependence, other tobacco product, uncomplicated
CPT/HCPCS: 36415; 80053; 81001; 82550; 83605; 83690; 85025; 99283

== ENCOUNTER → 2023-08-04 14:25 | Outpatient (BNVA) | payer BC, MEDICAID, SELFPAY | PROVIDERS: PCP Family Medicine; Visit Provider Orthopaedic Surgery | DX: M54.16 Radiculopathy, lumbar region (principal) | CPT/HCPCS: 72110 ==

== ENCOUNTER 2024-08-10 15:01 | Emergency (ER) | payer BC, MEDICAID, SELFPAY ==
[2024-08-10] VITALS (9 sets, daily range): BP systolic 127–144; BP diastolic 80–99; PULSE 64–81; RESP 15–20; TEMP 36.7; O2SAT 94–100; BMI 28.1
--- NOTE | 2024-08-10 15:38 | XRR_ITS ---
PROCEDURE INFORMATION: Exam: XR Chest Exam date and time: 08/10/2024 3:52 PM Age: 54 years old Clinical indication: Pain; Palpitations, chest pressure TECHNIQUE: Imaging protocol: Radiologic exam of the chest. Views: 1 view. COMPARISON: CR XR chest 1V portable [id number] 11/07/2022 8:34 PM FINDINGS: Lungs: Unremarkable. No consolidation. Pleural spaces: Unremarkable. No pleural effusion. No pneumothorax. Heart/Mediastinum: Unremarkable. No cardiomegaly. Bones/joints: Unremarkable. XR/XR chest 1V portable [id number] IMPRESSION: No acute findings.
--- NOTE | 2024-08-10 15:38 | ECG_ITS ---
[facility] Date: 2024-08[facility]10 Pat Name: Amber Pruitt Department: Room: Gender: Female [employer]ipe [employer] Supervisor: : 1970 Requested By: Rochelle White Order Number: [id number] Chrissy MD: Riddhi Brown M.D. Measurements Intervals [place] Rate: 83 P: 59 GA: 157 QRS: 3 QRSD: 91 T: 31 QT: 374 QTc: 441 Interpretive Statements SINUS RHYTHM POSSIBLE LEFT ATRIAL ENLARGEMENT [-0.1mV P-WAVE IN V1/V2] LOW QRS VOLTAGE IN PRECORDIAL LEADS [QRS DEFLECTION < 1.0 mV IN CHEST LEADS] Compared to ECG 11/07/2022 23:11:42 Low QRS voltage now present Sinus bradycardia no longer present Sinus arrhythmia no longer present Electronically Signed On 08-11-2024 13:07:33 CDT by Riddhi Brown M.D. [email or web address]
--- NOTE | 2024-08-10 15:40 | W.ED.CHESTPA ---
Documented by User: Rochelle Grant MD 08/10/24 18:01 HPI - Chest Pain General: Chief Complaint: Chest Pain Stated Complaint: chest pain Time Seen by Provider: 08/10/24 15:11 History of Present Illness: 54-year-old female with a history of hypertension and presents emergency room with palpitations. She presents by ambulance. She said her heart rates been getting up as high as the 120s and 130s. She says she feels like there is a pressure in her central chest. No cardiac history. She says she is supposed to go see cardiology about these palpitations as they have been going on for some time. No fevers. No cough. No lower extremity swelling. No nausea or vomiting. No abdominal pain. No altered mental status. No focal motor deficits. Related Data Home Medications ?Medication ?Instructions ?Recorded ?Confirmed omeprazole 20 mg capsule,delayed 20 mg PO DAILY 06/16/23 08/10/24 release hydroxyzine HCl 10 mg tablet 10 mg PO DAILY PRN Anxiety 08/10/24 08/10/24 ibuprofen 200 mg tablet (Advil) 200 mg PO Q6H PRN Fever Or Pain 08/10/24 08/10/24 methocarbamol 500 mg tablet 500 mg PO BID 08/10/24 08/10/24 Previous Rx's ?Medication ?Instructions ?Recorded albuterol sulfate 90 mcg/actuation 2 puff inhalation QID #6.7 grams 01/27/23 aerosol inhaler (Ventolin HFA) Thumb Spica Splint #1 ea 04/05/23 cetirizine 10 mg tablet (Zyrtec) 10 mg PO DAILY #30 tabs 09/15/23 fluticasone propionate 50 2 spray intranasal DAILY #16 grams 09/15/23 mcg/actuation nasal spray,suspension (Flonase Allergy Relief) gabapentin 300 mg capsule 600 mg (2 x 300 mg) PO BID #240 09/15/23 caps lisinopril 20 mg tablet 20 mg PO DAILY #30 tabs 10/31/23 Allergies Allergy/AdvReac Type Severity Reaction Status Date / Time morphine Allergy Severe ALGY-Anaphy Verified 07/06/24 11:56 laxis Penicillins Allergy Intermediate ALGY-Rash Verified 07/06/24 11:56 Review of Systems Narrative: Constitutional symptoms: Negative except as documented in HPI. Skin symptoms: Negative except as documented in HPI. Eye symptoms: Negative except as documented in HPI. ENMT symptoms: Negative except as documented in HPI. Respiratory symptoms: Negative except as documented in HPI. Cardiovascular symptoms: Negative except as documented in HPI. Gastrointestinal symptoms: Negative except as documented in HPI. Genitourinary symptoms: Negative except as documented in HPI. Musculoskeletal symptoms: Negative except as documented in HPI. Neurologic symptoms: Negative except as documented in HPI. Psychiatric symptoms: Negative except as documented in HPI. Endocrine symptoms: Negative except as documented in HPI. 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 Pseudomeningocele History of eustachian tube dysfunction History of kidney stones Trigeminal neuralgia Surgical History History of surgery on left wrist ganglion cyst removed and torn ligaments repaired History of cholecystectomy History of tonsillectomy and adenoidectomy H/O cervical discectomy History of partial hysterectomy Family History Grandfather Cancer Paternal-brain Other CAD (coronary artery disease) Diabetes Hyperlipidemia Hypertension Lung disease Psychiatric illness Stroke Denies family history of Clotting disorder Dementia Chronic kidney disease (CKD) Anesthesia complication Bleeding disorder Social History Smoking and tobacco/nicotine status: tobacco/nicotine user, details unknown (vapes occasionally) e-cigarettes E-Cigarette Details: vaporizer device E-cig/vape details: delta 8 Alcohol intake: never Substance/Drug Use: never Lives independently: Yes Marital status: Number of children: 3 Current occupational status: unemployed Kisha/Worship: None Special kisha needs: No Agree to transfusion: Yes Physical Exam Narrative: EXAM NARRATIVE: General: Alert, no acute distress. Skin: Warm, dry. Head: Normocephalic, atraumatic. Neck: Supple, trachea midline. Eye: Extraocular movements are intact. Ears, nose, mouth and throat: mucosa moist. Cardiovascular: Regular, Normal peripheral perfusion. Respiratory: Lungs are clear to auscultation, respirations are non-labored, breath sounds are equal, Symmetrical chest wall expansion. Gastrointestinal: Soft, Nontender, Non distended Musculoskeletal: Normal ROM, no deformity. Neurological: Alert and oriented, No focal neurological deficit observed. Psychiatric: Cooperative, appropriate mood & affect. Course Vital Signs: Vital signs: Vital Signs Temperature 98.1 F 08/10/24 15:12 Pulse Rate 75 08/10/24 19:51 Respiratory Rate 16 08/10/24 19:51 Blood Pressure 134/99 08/10/24 19:51 Pulse Oximetry 98 08/10/24 19:51 Oxygen Delivery Me thod Room Air 08/10/24 19:00 MDM - Chest Pain Medical Decision Making Medical decision making: Differential diagnosis including but not limited to and based on the above HPI, review of systems and physical exam: for patient with palpitations: atrial fibrillation with rapid ventricular response. ventricular tachycardia. sinus tachycardia. PVCs. also concern for underlying issues causing tachycardia. Infection, electrolyte abnormalities and thyroid issues Orders placed to evaluate differential diagnosis based on the above differential, HPI and physical exam EKG: Time 1504. Rate 83. Normal sinus rhythm, No ST-T changes, no ectopy, normal [place] & QRS intervals, This was reviewed and interpreted by myself the ER physician at 1508. So far workup has been negative. Second troponin pending. Patient care transitioned to Dr. Chang at shift change Lab Data 08/10/24 16:03 08/10/24 16:03 Radiology Impressions Chest X-Ray 08/10/24 15:38 IMPRESSION: No acute findings. Laboratory Results WBC 4.90 10^3/uL (3.29-11.43) 08/10/24 16:03 RBC 4.41 10^6/uL (3.85-5.65) 08/10/24 16:03 Hgb 13.40 g/dL (11.27-16.99) 08/10/24 16:03 Hct 41.4 % (36-47) 08/10/24 16:03 MCV 93.9 fl (85-98) 08/10/24 16:03 MCH 30.4 pg (27-33) 08/10/24 16:03 MCHC 32.4 g/dL (30-55) 08/10/24 16:03 RDW 12.6 % (12.1-15.1) 08/10/24 16:03 Plt Count 184 10^3/cmm (157-399) 08/10/24 16:03 MPV 8.7 fL (7.4-10.4) 08/10/24 16:03 Neut % (Auto) 59.4 % 08/10/24 16:03 Lymph % (Auto) 30.6 % 08/10/24 16:03 [place] % (Auto) 8.0 % 08/10/24 16:03 Eos % (Auto) 1.2 % 08/10/24 16:03 Baso % (Auto) 0.6 % 08/10/24 16:03 Neut # (Auto) 2.91 10^3/uL (1.8-7.7) 08/10/24 16:03 Lymph # (Auto) 1.5 10^3/uL (0.8-4.8) 08/10/24 16:03 [place] # (Auto) 0.4 10^3/uL (0.2-0.9) 08/10/24 16:03 Eos # (Auto) 0.1 10^3/uL (0.0-0.8) 08/10/24 16:03 Baso # (Auto) 0.0 10^3/uL (0.0-0.1) 08/10/24 16:03 Nucleated RBC % (auto) 0 % 08/10/24 16:03 Nucleated RBCs # 0.0 /100WBC 08/10/24 16:03 Sodium 138 mmol/L (136-145) 08/10/24 16:03 Potassium 3.7 mmol/L (3.5-5.1) 08/10/24 16:03 Chloride 105 mmol/L (98-107) 08/10/24 16:03 Carbon Dioxide 20 mmol/L (22-29) L 08/10/24 16:03 Anion Gap 16.7 (5-19) 08/10/24 16:03 BUN 12 mg/dL (6-20) 08/10/24 16:03 Creatinine 0.9 mg/dL (0.5-0.9) 08/10/24 16:03 GFR Calculation 65.8 mL/min (90-130) L 08/10/24 16:03 Glucose 96 mg/dL (65-115) 08/10/24 16:03 Calculated Osmolality 286 mOsm/kg (285-295) 08/10/24 16:03 Calcium 9.3 mg/dL (8.5-10.5) 08/10/24 16:03 Magnesium 1.9 mg/dL (1.7-2.3) 08/10/24 16:03 Total Bilirubin 0.3 mg/dL (0.15-1.2) 08/10/24 16:03 AST 17 U/L (0-32) 08/10/24 16:03 ALT 17 U/L (0-33) 08/10/24 16:03 Alkaline Phosphatase 51 U/L (35-105) 08/10/24 16:03 Troponin T Baseline < 6 ng/L (0-10) 08/10/24 16:03 Troponin T 120 Minute 6.00 ng/L (0-10) 08/10/24 17:58 Delta Troponin T 0.74012 ABS# (0-10) 08/10/24 17:58 NT-Pro-B Natriuret Pep 51 pg/mL (0-125) 08/10/24 16:03 Total Protein 6.7 g/dL (6.6-8.7) 08/10/24 16:03 Albumin 4.5 g/dL (3.5-5.2) 08/10/24 16:03 Globulin 2.2 g/dL (1.3-4.6) 08/10/24 16:03 TSH 0.82 uIU/mL (0.27-4.20) 08/10/24 16:03 Urine Color Yellow (Yellow) 08/10/24 16:28 Urine Appearance Clear (CLEAR) 08/10/24 16:28 Urine pH 6 (5-7) 08/10/24 16:28 Ur Specific Ragland 1.015 (1.005-1.030) 08/10/24 16: Urine Protein Neg (Negative) 08/10/24 16:28 Urine Glucose (UA) Norm (Normal) 08/10/24 16:28 Urine Ketones Negative (Negative) 08/10/24 16: Urine Blood Neg (Negative) 08/10/24 16: Urine Nitrate Negative (Negative) 08/10/24 16:28 Urine Bilirubin Neg (Negative) 08/10/24 16:28 Urine Urobilinogen Neg mg/dL (Negative) 08/10/24 16:28 Ur Leukocyte Esterase Negative (Negative) 08/10/24 16:28 Urine RBC 0-2 /hpf (0-2) 08/10/24 16:28 Urine WBC 0-5 /hpf (0-5) 08/10/24 16:28 Ur Squamous Epith Cells 0-5 /hpf (0-5) 08/10/24 16:28 Amorphous Sediment Not Reportable 08/10/24 16:28 Urine Bacteria None seen /hpf (NONE) 08/10/24 16:28 Hyaline Casts 0.40 /lpf 08/10/24 16:28 Discharge Plan Discharge Patient Disposition: Home Clinical Impression: Chest pain Condition: Stable Prescriptions: No Action albuterol sulfate [Ventolin HFA] 90 mcg/actuation HFA aerosol inhaler 2 puff inhalation QID Qty: 6.7 0RF (DME) Thumb Spica Splint See Rx Instructions .Route .MEDSUPPLY Qty: 1 0RF Rx Instructions: As directed gabapentin 300 mg capsule 600 mg PO BID Qty: 240 1RF cetirizine [Zyrtec] 10 mg tablet 10 mg PO DAILY Qty: 30 0RF fluticasone propionate [Flonase Allergy Relief] 50 mcg/actuation spray,suspension 2 spray intranasal DAILY Qty: 16 0RF Rx Instructions: administer into each nostril lisinopril 20 mg tablet 20 mg PO DAILY Qty: 30 0RF ibuprofen [Advil] 200 mg Tablet 200 mg PO Q6H PRN (Reason: Fever Or Pain) methocarbamol 500 mg tablet 500 mg PO BID hydroxyzine HCl 10 mg tablet 10 mg PO DAILY PRN (Reason: Anxiety) omeprazole 20 mg capsule,delayed release(DR/EC) 20 mg PO DAILY Discharge Orders: Discharge ED (Routine); Ordered 08/10/24 Ordered By: Josef Chang Referrals: Cristofer Morales MD [Primary Care Provider] - 1 week Patient Instructions: Chest Pain (ED) Activity Restrictions/Additional Instructions: Thank you for choosing [facility] for your healthcare needs today. Please realize that you were seen in the emergency department and that we are providing you with an emergency medical screening exam and this may not be a complete and all exclusive of all testing and/or medical workup we may need to determine your element or severity of your illness. It is very important that you follow-up as instructed with your primary care provider or specialist for the additional evaluation and to discuss your medical treatment plan. You may return to the emergency department should you have concerns or if your condition changes or worsens in any way. Print Language: Ghanaian Coding Level of Care Code ED Grain Origination Specialist for Chg Fwd Documented by User: Josef Chang DO 08/11/24 01:18 HPI - Chest Pain General: Chief Complaint: Chest Pain Stated Complaint: chest pain Time Seen by Provider: 08/10/24 15:11 Related Data Home Medications ?Medication ?Instructions ?Recorded ?Confirmed omeprazole 20 mg capsule,delayed 20 mg PO DAILY 06/16/23 08/10/24 release hydroxyzine HCl 10 mg tablet 10 mg PO DAILY PRN Anxiety 08/10/24 08/10/24 ibuprofen 200 mg tablet (Advil) 200 mg PO Q6H PRN Fever Or Pain 08/10/24 08/10/24 methocarbamol 500 mg tablet 500 mg PO BID 08/10/24 08/10/24 Previous Rx's ?Medication ?Instructions ?Recorded albuterol sulfate 90 mcg/actuation 2 puff inhalation QID #6.7 grams 01/27/23 aerosol inhaler (Ventolin HFA) Thumb Spica Splint #1 ea 04/05/23 cetirizine 10 mg tablet (Zyrtec) 10 mg PO DAILY #30 tabs 09/15/23 fluticasone propionate 50 2 spray intranasal DAILY #16 grams 09/15/23 mcg/actuation nasal spray,suspension (Flonase Allergy Relief) gabapentin 300 mg capsule 600 mg (2 x 300 mg) PO BID #240 09/15/23 caps lisinopril 20 mg tablet 20 mg PO DAILY #30 tabs 10/31/23 Allergies Allergy/AdvReac Type Severity Reaction Status Date / Time morphine Allergy Severe ALGY-Anaphy Verified 07/06/24 11:56 laxis Penicillins Allergy Intermediate ALGY-Rash Verified 07/06/24 11:56 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 Pseudomeningocele History of eustachian tube dysfunction History of kidney stones Trigeminal neuralgia Surgical History History of surgery on left wrist ganglion cyst removed and torn ligaments repaired History of cholecystectomy History of tonsillectomy and adenoidectomy H/O cervical discectomy History of partial hysterectomy Family History Grandfather Cancer Paternal-brain Other CAD (coronary artery disease) Diabetes Hyperlipidemia Hypertension Lung disease Psychiatric illness Stroke Denies family history of Clotting disorder Dementia Chronic kidney disease (CKD) Anesthesia complication Bleeding disorder Social History Smoking and tobacco/nicotine status: tobacco/nicotine user, details unknown (vapes occasionally) e-cigarettes E-Cigarette Details: vaporizer device E-cig/vape details: delta 8 Alcohol intake: never Substance/Drug Use: never Lives independently: Yes Marital status: Number of children: 3 Current occupational status: unemployed Kisha/Worship: None Special kisha needs: No Agree to transfusion: Yes Course Vital Signs: Vital signs: Vital Signs Temperature 98.1 F 08/10/24 15:12 Pulse Rate 75 08/10/24 19:51 Respiratory Rate 16 08/10/24 19:51 Blood Pressure 134/99 08/10/24 19:51 Pulse Oximetry 98 08/10/24 19:51 Oxygen Delivery Me thod Room Air 08/10/24 19:00 MDM - Chest Pain Medical Decision Making Medical decision making: Differential diagnosis including but not limited to and based on the above HPI, review of systems and physical exam: for patient with palpitations: atrial fibrillation with rapid ventricular response. ventricular tachycardia. sinus tachycardia. PVCs. also concern for underlying issues causing tachycardia. Infection, electrolyte abnormalities and thyroid issues Orders placed to evaluate differential diagnosis based on the above differential, HPI and physical exam EKG: Time 1504. Rate 83. Normal sinus rhythm, No ST-T changes, no ectopy, normal [place] & QRS intervals, This was reviewed and interpreted by myself the ER physician at 1508. So far workup has been negative. Second troponin pending. Patient care transitioned to Dr. Chang at shift change Care transferred over to myself at shift change, 2-hour troponin came back normal, patient states chest pain-free, patient did ask for some Tums for her acid reflux. Patient be discharged home. Lab Data 08/10/24 16:03 08/10/24 16:03 Radiology Impressions Chest X-Ray 08/10/24 15:38 IMPRESSION: No acute findings. Laboratory Results WBC 4.90 10^3/uL (3.29-11.43) 08/10/24 16:03 RBC 4.41 10^6/uL (3.85-5.65) 08/10/24 16:03 Hgb 13.40 g/dL (11.27-16.99) 08/10/24 16:03 Hct 41.4 % (36-47) 08/10/24 16:03 MCV 93.9 fl (85-98) 08/10/24 16:03 MCH 30.4 pg (27-33) 08/10/24 16:03 MCHC 32.4 g/dL (30-55) 08/10/24 16:03 RDW 12.6 % (12.1-15.1) 08/10/24 16:03 Plt Count 184 10^3/cmm (157-399) 08/10/24 16:03 MPV 8.7 fL (7.4-10.4) 08/10/24 16:03 Neut % (Auto) 59.4 % 08/10/24 16:03 Lymph % (Auto) 30.6 % 08/10/24 16:03 [place] % (Auto) 8.0 % 08/10/24 16:03 Eos % (Auto) 1.2 % 08/10/24 16:03 Baso % (Auto) 0.6 % 08/10/24 16:03 Neut # (Auto) 2.91 10^3/uL (1.8-7.7) 08/10/24 16:03 Lymph # (Auto) 1.5 10^3/uL (0.8-4.8) 08/10/24 16:03 [place] # (Auto) 0.4 10^3/uL (0.2-0.9) 08/10/24 16:03 Eos # (Auto) 0.1 10^3/uL (0.0-0.8) 08/10/24 16:03 Baso # (Auto) 0.0 10^3/uL (0.0-0.1) 08/10/24 16:03 Nucleated RBC % (auto) 0 % 08/10/24 16:03 Nucleated RBCs # 0.0 /100WBC 08/10/24 16:03 Sodium 138 mmol/L (136-145) 08/10/24 16:03 Potassium 3.7 mmol/L (3.5-5.1) 08/10/24 16:03 Chloride 105 mmol/L (98-107) 08/10/24 16:03 Carbon Dioxide 20 mmol/L (22-29) L 08/10/24 16:03 Anion Gap 16.7 (5-19) 08/10/24 16:03 BUN 12 mg/dL (6-20) 08/10/24 16:03 Creatinine 0.9 mg/dL (0.5-0.9) 08/10/24 16:03 GFR Calculation 65.8 mL/min (90-130) L 08/10/24 16:03 Glucose 96 mg/dL (65-115) 08/10/24 16:03 Calculated Osmolality 286 mOsm/kg (285-295) 08/10/24 16:03 Calcium 9.3 mg/dL (8.5-10.5) 08/10/24 16:03 Magnesium 1.9 mg/dL (1.7-2.3) 08/10/24 16:03 Total Bilirubin 0.3 mg/dL (0.15-1.2) 08/10/24 16:03 AST 17 U/L (0-32) 08/10/24 16:03 ALT 17 U/L (0-33) 08/10/24 16:03 Alkaline Phosphatase 51 U/L (35-105) 08/10/24 16:03 Troponin T Baseline < 6 ng/L (0-10) 08/10/24 16:03 Troponin T 120 Minute 6.00 ng/L (0-10) 08/10/24 17:58 Delta Troponin T 0.43826 ABS# (0-10) 08/10/24 17:58 NT-Pro-B Natriuret Pep 51 pg/mL (0-125) 08/10/24 16:03 Total Protein 6.7 g/dL (6.6-8.7) 08/10/24 16:03 Albumin 4.5 g/dL (3.5-5.2) 08/10/24 16:03 Globulin 2.2 g/dL (1.3-4.6) 08/10/24 16:03 TSH 0.82 uIU/mL (0.27-4.20) 08/10/24 16:03 Urine Color Yellow (Yellow) 08/10/24 16:28 Urine Appearance Clear (CLEAR) 08/10/24 16:28 Urine pH 6 (5-7) 08/10/24 16:28 Ur Specific Ragland 1.015 (1.005-1.030) 08/10/24 16:28 Urine Protein Neg (Negative) 08/10/24 16:28 Urine Glucose (UA) Norm (Normal) 08/10/24 16:28 Urine Ketones Negative (Negative) 08/10/24 16:28 Urine Blood Neg (Negative) 08/10/24 16:28 Urine Nitrate Negative (Negative) 08/10/24 16:28 Urine Bilirubin Neg (Negative) 08/10/24 16:28 Urine Urobilinogen Neg mg/dL (Negative) 08/10/24 16:28 Ur Leukocyte Esterase Negative (Negative) 08/10/24 16:28 Urine RBC 0-2 /hpf (0-2) 08/10/24 16:28 Urine WBC 0-5 /hpf (0-5) 08/10/24 16:28 Ur Squamous Epith Cells 0-5 /hpf (0-5) 08/10/24 16:28 Amorphous Sediment Not Reportable 08/10/24 16:28 Urine Bacteria None seen /hpf (NONE) 08/10/24 16:28 Hyaline Casts 0.40 /lpf 08/10/24 16:28 All radiology interpretation(s) finalized by discharge Discharge Plan Discharge Patient Disposition: Home Clinical Impression: Chest pain Condition: Stable Prescriptions: No Action albuterol sulfate [Ventolin HFA] 90 mcg/actuation HFA aerosol inhaler 2 puff inhalation QID Qty: 6.7 0RF (DME) Thumb Spica Splint See Rx Instructions .Route .MEDSUPPLY Qty: 1 0RF Rx Instructions: As directed gabapentin 300 mg capsule 600 mg PO BID Qty: 240 1RF cetirizine [Zyrtec] 10 mg tablet 10 mg PO DAILY Qty: 30 0RF fluticasone propionate [Flonase Allergy Relief] 50 mcg/actuation spray,suspension 2 spray intranasal DAILY Qty: 16 0RF Rx Instructions: administer into each nostril lisinopril 20 mg tablet 20 mg PO DAILY Qty: 30 0RF ibuprofen [Advil] 200 mg Tablet 200 mg PO Q6H PRN (Reason: Fever Or Pain) methocarbamol 500 mg tablet 500 mg PO BID hydroxyzine HCl 10 mg tablet 10 mg PO DAILY PRN (Reason: Anxiety) omeprazole 20 mg capsule,delayed release(DR/EC) 20 mg PO DAILY Discharge Orders: Discharge ED (Routine); Ordered 08/10/24 Ordered By: Josef Chang Referrals: Cristofer Morales MD [Primary Care Provider] - 1 week Patient Instructions: Chest Pain (ED) Activity Restrictions/Additional Instructions: Thank you for choosing [facility] for your healthcare needs today. Please realize that you were seen in the emergency department and that we are providing you with an emergency medical screening exam and this may not be a complete and all exclusive of all testing and/or medical workup we may need to determine your element or severity of your illness. It is very important that you follow-up as instructed with your primary care provider or specialist for the additional evaluation and to discuss your medical treatment plan. You may return to the emergency department should you have concerns or if your condition changes or worsens in any way. Print Language: Ghanaian Coding Level of Care Code ED Grain Origination Specialist for Raphael Moreno
[2024-08-10 16:10] LABS: Basophils % 0.6 %; Eosinophils # 0.1 10^3/uL (0.0-0.8); Eosinophils % 1.2 %; Hematocrit 41.4 % (36-47); Lymphocytes # 1.5 10^3/uL (0.8-4.8); Lymphocytes % 30.6 %; Mean Corpuscular HGB Conc 32.4 g/dL (30-55); Mean Corpuscular Hemoglobin 30.4 pg (27-33); Mean Corpuscular Volume 93.9 fl (85-98); Mean Platelet Volume 8.7 fL (7.4-10.4); Monocytes # 0.4 10^3/uL (0.2-0.9); Neutrophils # 2.91 10^3/uL (1.8-7.7); Neutrophils % 59.4 %; Nucleated Red Blood Cells % 0 %; Platelet Count 184 10^3/cmm (157-399); Red Blood Count 4.41 10^6/uL (3.85-5.65); Red Cell Distribution Width 12.6 % (12.1-15.1)
[2024-08-10 16:28] LABS: Troponin(5th) Baseline < 6 ng/L (0-10)
[2024-08-10 16:44] LABS: Alanine Aminotransferase 17 U/L (0-33); Albumin Level 4.5 g/dL (3.5-5.2); Alkaline Phosphatase 51 U/L (35-105); Anion Gap 16.7 (5-19); Aspartate Amino Transferase 17 U/L (0-32); Blood Urea Nitrogen 12 mg/dL (6-20); Calcium 9.3 mg/dL (8.5-10.5); Carbon Dioxide 20 mmol/L (22-29); Chloride 105 mmol/L (98-107); Creatinine Clr Calc Pharmacy 83.0026; Globulin 2.2 g/dL (1.3-4.6); Glomerular Filtration Rate 65.8 mL/min (90-130); Glucose 96 mg/dL (65-115); Magnesium 1.9 mg/dL (1.7-2.3); NT Pro B Type Natriuretic Pept 51 pg/mL (0-125); Osmolality Calculated 286 mOsm/kg (285-295); Potassium 3.7 mmol/L (3.5-5.1); Sodium 138 mmol/L (136-145); Thyroid Stimulating Hormone 0.82 uIU/mL (0.27-4.20); Total Bilirubin 0.3 mg/dL (0.15-1.2); Total Protein 6.7 g/dL (6.6-8.7)
[2024-08-10 16:45] LABS: Bacteria Urine None Seen /hpf; RBC Urine 0-2 /hpf (0-2); Squamous Epithelial Cell Urine 0-5 /hpf (0-5); WBC Urine 0-5 /hpf (0-5)
[2024-08-10 16:49] LABS: Bilirubin Urine Neg (Negative); Blood Urine Neg (Negative); Glucose Urine UA Norm (Normal); Ketones Urine Negative (Negative); Leukocyte Esterase Urine Negative (Negative); Nitrate Urine Negative (Negative); Protein Urine Neg (Negative); Specific Gravity, Urine 1.015 (1.005-1.030); Urine Appearance Clear (CLEAR); Urine Color Yellow (Yellow); Urobilinogen Urine Neg (Negative); pH Urine 6 (5-7)
--- NOTE | 2024-08-10 17:38 | ECG_ITS ---
[employer] Test Date: 2024-08-10 Pat Name: Amber Pruitt Department: Room: Gender: Female Environment Friendly Landscape Designer: : 1970 Requested By: Rochelle White Order Number: [id number] Chrissy MD: Riddhi Brown M.D. Measurements Intervals [place] Rate: 66 P: 142 AL: 148 QRS: 0 QRSD: 100 T: 92 QT: 392 QTc: 412 Interpretive Statements ECTOPIC ATRIAL RHYTHM POSSIBLE LEFT ATRIAL ENLARGEMENT [-0.1mV P-WAVE IN V1/V2] LOW QRS VOLTAGE IN PRECORDIAL LEADS [QRS DEFLECTION < 1.0 mV IN CHEST LEADS] PROBABLE LATERAL MYOCARDIAL INFARCTION , PROBABLY OLD [35 ms Q WAVE IN I/aVL/V5/V6] Compared to ECG 08/10/2024 15:04:25 Ectopic atrial rhythm now present Myocardial infarct finding now present Sinus rhythm no longer present Electronically Signed On 08-11-2024 13:17:05 CDT by Riddhi Brown M.D. [email or web address]
[2024-08-10 18:32] LABS: Troponin 5 2HR Delta 0.00001 ABS# (0-10)
[2024-08-10] MEDS: calcium carbonate 500 mg Chew Tablet 1000 MG PO (19:47)
== END 2024-08-10 20:02 | disposition home or self-care (01) ==
PROVIDERS: Emergency Provider Emergency Medicine; PCP Family Medicine
DX: R07.9 Chest pain, unspecified (principal); F17.290 Nicotine dependence, other tobacco product, uncomplicated
CPT/HCPCS: 36415; 71045; 80053; 81001; 83735; 83880; 84443; 84484; 85025; 93005; 99285; J9999

== ENCOUNTER 2024-11-08 13:57 | Emergency (ER) | payer BC, MEDICAID, SELFPAY ==
[2024-11-08 14:03] VITALS: BP 160/102; PULSE 81; RESP 17; TEMP 36.6; O2SAT 97; BMI 22.8
--- OUTSIDE RECORDS SUMMARY | 2024-11-08 14:13 | XMS_ITS | Clinical Summary ---
Author Organization [facility] Domenico Bloom Address [address] [place] [address] Phone Care Team Providers Care Ticket Agent Name Role Phone Lilian Velasquez DO Primary Care Provider Allergies Active Allergy Reactions Criticality Noted Date Comments Morphine Anaphylaxis High 12/27/2023 Penicillins Rash Low 12/27/2023 Medications celecoxib (CeleBREX) 50 mg capsule Take 50 mg by mouth 2 times daily. Active omeprazole (PriLOSEC) 20 mg Capsule, Delayed Release(E.C.) Take 20 mg by mouth 2 times daily. Active fluticasone propionate (FLONASE) 50 mcg/spray [place], Suspension nasal inhalerIndicatio ns:Allergic rhinitis, unspecified seasonality, unspecified trigger Administer 1 [place] in each nostril daily. 16 Gram 3 4 Active albuterol sulfate HFA 90 mcg/actuation aerosol inhalerIndicatio ns:Asthma, unspecified asthma severity, unspecified whether complicated, unspecified whether persistent Take 2 Puffs by inhalation every 6 hours as needed for Shortness of Breath. 8.5 Gram 4 4 Active predniSONE (DELTASONE) 10 mg tabletIndication s:Acute bronchitis, unspecified organism Take 3 tablet once per day for 3 days, then 2 tabs once per day for 3 days, then 1 tab once per day for 3 days 18 Tablet 4 Active Additional Information Patient not taking.Reported on 10/16/2024 lisinopriL (PRINIVIL) 20 mg tabletIndication s:Hypertension, unspecified type take 1 tablet by mouth once daily 90 Tablet 3 4 Active promethazine-dex tromethorphan (PHENERGAN-DM) 6.25-15 mg/5 mL syrupIndications :Acute bronchitis, unspecified organism TAKE FIVE ML BY MOUTH EVERY FOUR hours NEEDED FOR cough. 120 mL 1 4 Active Additional Information Patient not taking.Reported on 10/16/2024 inhalational spacing device (Microchamber) SpacerIndication s:Mild intermittent asthma with acute exacerbation,Vir al URI with cough Use with albuterol inhaler 1 Each 5 Active hydrOXYzine HCL (ATARAX) 10 mg tabletIndication s:Anxiety TAKE ONE TABLET BY MOUTH THREE TIMES DAILY NEEDED FOR ANXIETY 90 Tablet 3 5 Active methocarbamoL (ROBAXIN) 500 mg tabletIndication s:Spasm of back muscles Take 1 Tablet (500 mg) by mouth 2 times daily. 60 Tablet 3 5 Active gabapentin (NEURONTIN) 300 mg capsuleIndicatio ns:Trigeminal neuralgia TAKE TWO CAPSULES BY MOUTH TWICE DAILY. 360 Capsule 1 5 Active multivitamin (DAILY-ORACIO) tablet Take 1 Tablet by mouth daily. 30 Tablet 4 5 Active mupirocin (BACTROBAN) 2 % OintmentIndicati ons:Dog bite, initial encounter Apply to affected area daily. 30 Gram 5 Active azithromycin (ZITHROMAX) 250 mg tabletIndication s:Dog bite, initial encounter Take 2 Tablets (500 mg) by mouth daily for 1 day, THEN 1 Tablet (250 mg) daily for 4 days. 6 Tablet 5 025 metroNIDAZOLE (FLAGYL) 500 mg tabletIndication s:Dog bite, initial encounter Take 1 Tablet (500 mg) by mouth 2 times daily for 7 days. 14 Tablet 5 025 Hospital, Clinic, or Other Facility Administered Medication Ordered Dose Route Frequency Start Date End Date Status ketorolac (TORADOL) injection 30 mgIndications:Flank pain 30 mg IM ONE TIME ONLY 10/16/2024 10/16/2024 Ended Active Problems Problem Noted Date Diagnosed Date PTSD (post-traumatic stress disorder) 12/27/2023 Trigeminal neuralgia 12/27/2023 History of Chiari malformation 12/27/2023 Hypertensive disorder 12/30/2020 Anxiety 12/30/2020 Encounters Date Type Department Care Team Description 11/08/[address] [facility] [address] [place] [address] Pruitt, July, DRIVER STARTING GATE Clinical Consult Before Scheduling 10/18/2024 Results Follow-Up [facility] [address] [place] [address] Pruitt, July, DRIVER STARTING GATE POC URINALYSIS DIPSTICK AUTOMATED, URINE CULTURE 10/18/[address] [facility] [address] [place] [address] Lilian Velasquez, DO Needs Orders Written 10/16/2024 3:00 PM CDT Office Visit [facility] [address] [place] [address] Pruitt, July, DRIVER STARTING GATE Dog bite, initial encounter (Primary Dx); Flank pain 10/16/2024 External Device Data [facility] Provider, Abstract 10/16/2024 Telephone [facility] [address] [place] [address] Lilian Velasquez, DO Clinical Consult Before Scheduling 10/02/2024 External Device Data [facility] Provider, Abstract 09/20/2024 External Device Data [facility] Provider, Abstract 09/19/2024 External Device Data [facility] Provider, Abstract 09/18/2024 External Device Data [facility] Provider, Abstract 08/28/[address] [facility] [address] [place] [address] Lilian Velasquez, Clinical Consult Before Scheduling 08/14/2024 External Device Data [facility] Provider, Abstract 08/12/[address] [facility] [address] [place] [address] Lilian Velasquez, DO Trigeminal neuralgia 08/10/2024 5:00 AM CDT - 08/10/2024 11:59 PM CDT Hospital Encounter [facility] [place] [address] [place] [phone] Ambulance, [facility] Discharge Disposition: [facility] 08/09/[address] [facility] [address] [facility] [place] [phone] Lilian Velasquez DO Clinical Consult Before Scheduling from Last 3 Months Social History Tobacco Use Types Packs/Day Years Used Date Smoking Tobacco: Never Passive Smoke Exposure: Never Smokeless Tobacco: Never Tobacco Cessation:Counseling Given: No Alcohol Use Standard Drinks/Week Comments Never 0 (1 standard drink = 0.6 oz pur e alcohol) Comments No Sex and Gender Information Value Date Recorded Sex Assigned at Not on file Legal Sex Female 2:08 PM CDT Gender Identity Not on file Sexual Orientation Not on file Last Filed Vital Signs Vital Sign Reading Time Taken Comments Blood Pressure 120/76 10/16/2024 3:07 PM CDT Pulse 90 10/16/2024 3:07 PM CDT Temperature 37.1 C (98.8 F) 10/16/2024 3:07 PM CDT Respiratory Rate 18 10/16/2024 3:07 PM CDT Oxygen Saturation 97% 10/16/2024 3:07 PM CDT Inhaled Oxygen Concentration - - Weight 84.8 kg (187 lb) 10/16/2024 3:07 PM CDT Height 172.7 cm (5' 8 ) 10/16/2024 3:07 PM CDT Body Mass Index 28.43 10/16/2024 3:07 PM CDT Plan of Treatment Upcoming Encounters Date Type Department Care Team (Late st Contact Info) Description 01/03/2025 9:00 AM CDT Office Visit [facility] [address] [facility] [phone] July, DRIVER STARTING GATE [address] [place] [facility] [address] Health Maintenance Due Date Last Done Comments Pre-Diabetes and Diabetes Screening 1972 DTAP/TDAP/TD VACCINES (1 - Tdap) 1991 HEPATITIS B VACCINES (1 of 3 - 19+ 3-dose series) 06/02 Preventative Visit-Managed Medicaid 1991 HPV/Cotest (21-29) 1993 CERVICAL CANCER SCREENING 2002 HPV/Cotest (30-65) 2002 PAP SMEAR 2002 BREAST CANCER SCREENING 2012 COLORECTAL SCREENING 2017 FIT/FOBT Q 1 year 2017 Flex Sig/CT Colonography Q 5 years 2017 ZOSTER VACCINE (1 of 2) 2022 INFLUENZA VACCINE (#1) 2024 07/03/2024 Colorectal Cancer Screening 03/12/2027 FIT-DNA Q 3 years 03/12/2027 03/12/2024 Procedures Procedure Name Priority Date/Time Associated Diagnosis Comments URINE CULTURE Routine 10/16/2024 3:45 PM CDT POC URINALYSIS DIPSTICK AUTOMATED Routine 10/16/2024 3:44 PM CDT Flank pain COLON CANCER SCREEN, STOOL DNA Routine 03/12/2024 4:33 PM ACTIVITY LEADER Encounter for colorectal cancer screening from Last 3 Months or Most Recently Relevant to Health Maintenance Results * URINE CULTURE (10/16/2024 3:45 PM CDT) URINE CULTURE SEE NOTE [facility] Comment: CULTURE, URINE, ROUTINE Micro Number: [id number] Test Status: Final Specimen Source: Urine, clean catch Specimen Quality: Adequate Result: Less than 10,000 CFU/mL of single Gram positive organism isolated. No further testing will be performed. If clinically indicated, recollection using a method to minimize contamination, with prompt transfer to Urine Culture Transport Tube, is recommended. Test Performed at: [facility] [address] [place] [address] Shyanne Syed MD Urine URINE SPECIMEN OBTAINED BY CLEAN CATCH PROCEDURE / Unknown 10/16/2024 3:45 PM CDT 10/17/2024 5:45 AM CDT July DRIVER STARTING GATE MICROBIOLOGY - GENERAL ORDERABLE S Final Result [facility] [phone] [facility] [address] [place] [phone] * POC URINALYSIS DIPSTICK AUTOMATED (10/16/2024 3:44 PM CDT) COLOR UA POC Yellow Pale to Dark Yellow [facility] CLARITY UA POC Clear Clear, Other ME [facility] GLUCOSE UA POC Negative Negative, Normal [facility] BILIRUBIN UA POC Negative Negative [facility] KETONES UA POC Negative Negative [facility] SPECIFIC GRAVITY UA POC 1.015 1.000 - 1.030 [facility] BLOOD UA POC Negative Negative [facility] PH UA POC 7.0 5.0 - 8.0 [facility] PROTEIN UA POC Negative Negative [facility] UROBILINOGEN UA POC 0.2 <2.0 mg/dL [facility] NITRITE UA POC Negative Negative [facility] LEUKOCYTE ESTERASE UA POC Negative Negative [facility] KIT LOT NUMBER POC [phone] [facility] KIT EXP DATE POC [id number] [facility] Urine 10/16/2024 3:44 PM CDT July DRIVER STARTING GATE POINT OF CARE TESTING Final Resu lt [facility] CLIA# [id number] [address] [place] [address] * COLON CANCER SCREEN, STOOL DNA (03/12/2024 4:33 PM ACTIVITY LEADER) COLOGUARD RESULT Negative Negative [facility] Comment: NEGATIVE TEST RESULT. A negative Cologuard result indicates a low likelihood that a colorectal cancer (CRC) or advanced adenoma (adenomatous polyps with more advanced pre-malignant features) is present. The chance that a person with a negative Cologuard test has a colorectal cancer is less than 1 in 1500 (negative predictive value >99.9%) or has an advanced adenoma is less than 5.3% (negative predictive value 94.7%). These data are based on a prospective cross-sectional study of 10,000 individuals at average risk for colorectal cancer who were screened with both Cologuard and colonoscopy. (Jurgen Rasheed al, N Engl J Med 2014;370(14):8027-0467) The normal value (reference range) for this assay is negative. COLOGUARD RE-SCREENING RECOMMENDATION: Periodic colorectal cancer screening is an important part of preventive healthcare for asymptomatic individuals at average risk for colorectal cancer. Following a negative Cologuard result, the [place] Cancer Society and U.S. Multi-Society Task Force screening guidelines recommend a Cologuard re-screening interval of 3 years. References: [place] Cancer Society Guideline for Colorectal Cancer Screening: https://www.cancer.org/cancer/jqqai-altooh-atbajm/qrxcnurie-ztgfkdshc-rpfukdf/ac s-rec ommendations.html.; Abe NUÑEZ, Alphonse GOMEZ, Iqra BarbosaK, Colorectal Cancer Screening: Recommendations for Physicians and Patients from the U.S. Multi-Society Task Force on Colorectal Cancer Screening , Am J Gastroenterology 2017; 112:9340-7669. TEST DESCRIPTION: Composite algorithmic analysis of stool DNA-biomarkers with hemoglobin immunoassay. Quantitative values of individual biomarkers are not reportable and are not associated with individual biomarker result reference ranges. Cologuard is intended for colorectal cancer screening of adults of either sex, 45 years or older, who are at average-risk for colorectal cancer (CRC). Cologuard has been approved for use by the U.S. FDA. The performance of Cologuard was established in a cross sectional study of average-risk adults aged 50-84. Cologuard performance in patients ages 45 to 49 years was estimated by sub-group analysis of near-age groups. Colonoscopies performed for a positive result may find as the most clinically significant lesion: colorectal cancer [4.0%], advanced adenoma (including sessile serrated polyps greater than or equal to 1cm diameter) [20%] or non- advanced adenoma [31%]; or no colorectal neoplasia [45%]. These estimates are derived from a prospective cross-sectional screening study of 10,000 individuals at average risk for colorectal cancer who were screened with both Cologuard and colonoscopy. (Jurgen Saba et al, N Engl J Med 2014;370(14):5650-2930.) Cologuard may produce a false negative or false positive result (no colorectal cancer or precancerous polyp present at colonoscopy follow up). A negative Cologuard test result does not guarantee the absence of CRC or advanced adenoma (pre-cancer). The current Cologuard screening interval is every 3 years. ([place]izen [place] Cancer Society and U.S. Multi-Society Task Force). Cologuard performance data in a 10,000 patient pivotal study using colonoscopy as the reference method can be accessed at the following location: www.Ritot/results. Additional description of the Cologuard test process, warnings and precautions can be found at www.[employer].com. Stool STOOL SPECIMEN / Unknown 03/12/2024 4:33 PM ACTIVITY LEADER 03/13/2024 7:22 PM ACTIVITY LEADER July Pruitt DRIVER STARTING GATE BODY FLUIDS AND STOOLS Final Res ult [facility] CLIA # [id number] [address] , [address] [place] [address] from Last 3 Months or Most Recently Relevant to Health Maintenance Insurance [employer] Care Teams Ticket Agent Relationship Specialty Start Date End Date Lilian Velasquez DO [address] [place] [address] PCP - General Family Practice 12/28/23
--- OUTSIDE RECORDS SUMMARY | 2024-11-08 14:13 | XMS_ITS | Encounter Summary ---
Author Organization [facility] Address [address] [place] [address] Care Team Providers Care Studio Associate Name Role Phone Lilian Velasquez DO Primary Care Provider Reason for Visit * Reason Comments Clinical Consult Before Scheduling Encounter Details Date Type Department Care Team (Late st Contact Info) Description 11/08/2024 Telephone [facility] [place] [address] [place] [address] SonalJuly, EMERGENCY RESPONSE OFFICER [address] [place] [address] Clinical Consult Before Scheduling Social History Tobacco Use Types Packs/Day Years Used Date Smoking Tobacco: Never Passive Smoke Exposure: Never Smokeless Tobacco: Never Alcohol Use Standard Drinks/Week Comments Never 0 (1 standard drink = 0.6 oz pur e alcohol) Comments No Sex and Gender Information Value Date Recorded Sex Assigned at Not on file Legal Sex Female 2:08 PM CDT Gender Identity Not on file Sexual Orientation Not on file documented as of this encounter Miscellaneous Notes * Telephone Encounter - Ivania Palomino - 11/08/2024 12:47 PM CDT Copied from [facility] #[id number]. Topic: Symptomatic Care >> Nov 08, 2024 12:45 PM Ivania Heredia wrote: Has this patient seen any provider (current or former) at the requested clinic in the past? Yes, Select the appropriate age range and symptom Patient has symptoms and is seeking care. Caller Name: Amber Pruitt Callback Number: Telephone Information: Call Notes: Rope lombardi on both ankles and has turned into nasty abrasions. Patient states her pain level is a 10. Age Range/Symptom: Adult 18+ - Pain, present for less than 3 days AND 8, 9 or 10 severity on a 0-10scale (10 being worst) Connection lost before call transferred. documented in this encounter Plan of Treatment Upcoming Encounters Date Type Department Care Team (Late st Contact Info) Description 01/03/2025 9:00 AM CDT Office Visit [facility] [place] [address] [place] [facility] [place] [address] July, EMERGENCY RESPONSE OFFICER [address] [facility] [place] [phone] documented as of this encounter Visit Diagnoses Not on filedocumented in this encounter Care Teams Studio Associate Relationship Specialty Start Date End Date Lilian Velasquez DO [address] [facility] [place] [address] PCP - General Family Practice 12/28/23 documented as of this encounter
--- OUTSIDE RECORDS SUMMARY | 2024-11-08 14:13 | XMS_ITS | Encounter Summary ---
Author Organization [facility] Address [address] [place] [address] Care Team Providers Care Passenger Train Braker Name Role Phone Lilian Velasquez DO Primary Care Provider Encounter Details Date Type Department Care Team ([facility] Contact Info) Description 10/18/2024 Results Follow-Up [facility] [address] [place] [address] July, [place] [address] POC URINALYSIS DIPSTICK AUTOMATED, URINE CULTURE Social History Tobacco Use Types Packs/Day Years [...] on file documented as of this encounter Plan of Treatment Upcoming Encounters Date Type Department Care Team (Late Contact Info) Description 01/03/2025 9:00 AM CDT Office Visit [facility] [address] [place] [address] July, PERSONAL LINES ADVISOR [address] [place] [address] documented as of this encounter Visit Diagnoses Not on filedocumented in this encounter Care Teams Passenger Train Braker Relationship Specialty Start Date End Date Lilian Velasquez DO [address] [place] [address] PCP - General Family Practice 12/28/23 documented as of this encounter
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
[2024-11-08] MEDS: HYDROcodone-acetaminophen 10-325 mg Tablet 1 TAB PO (15:16)
[2024-11-08] MEDS: mupirocin oint 22 gm 1 APPLIC TOPICAL (15:21)
[2024-11-08 15:30] VITALS: BP 124/90
== END 2024-11-08 15:32 | disposition home or self-care (01) ==
PROVIDERS: Emergency Provider Physician Assistant; PCP Family Medicine
DX: S80.822A Blister (nonthermal), left lower leg, initial encounter (principal); S80.821A Blister (nonthermal), right lower leg, initial encounter; X58.XXXA Exposure to other specified factors, initial encounter; Z79.899 Other long term (current) drug therapy; F17.290 Nicotine dependence, other tobacco product, uncomplicated
CPT/HCPCS: 99283; J9999